=== PATIENT | female | born 1950 | race Caucasian/White ===

== ENCOUNTER 2018-04-28 10:15 | Emergency (ER) | payer MEDICARE, MEDICAID, SELFPAY ==
[2018-04-28 10:19] VITALS: BP 152/64; PULSE 91; RESP 12; TEMP 36.7; O2SAT 98
--- NOTE | 2018-04-28 10:30 | DI.RAD_ITS ---
SYMPTOMS/DIAGNOSIS: S/P FALL, ? ACUTE FRACTURE LEFT WRIST AND LEFT HAND: There is an impacted nondisplaced fracture involving the distal radial metaphysis. No other acute fracture or dislocation is seen. On the lateral view of the hand, there is a question of periosteal reaction along the palmar aspect of the left 5th metacarpal. There is soft tissue swelling of the hand and wrist noted. No radiopaque foreign bodies are seen in the soft tissues. IMPRESSION: 1. Nondisplaced impacted fracture involving the distal radial metaphysis. 2. Questionable area of periostitis involving the palmar surface of the 5th metacarpal. This is best appreciated on the lateral view. This may represent a healing osseous injury or other bony abnormality. Please correlate with the patient's physical exam. Further evaluation may be warranted.
--- NOTE | 2018-04-28 11:13 | ED.GENADUL_ITS ---
Discharge Plan Disposition Patient Disposition: HOME Condition: Stable Discharge Details Chief Complaint: Orthopedic Clinical Impression: Colles' fracture of left radius Primary Care Provider: Shahbaz Rooney ED Provider: Adelia Vivas Home Meds and New Rx's Prescriptions: No Action No Known Home Meds RF: 0 Discharge Instructions Instructions: Wrist Fracture in Adults (ED) Additional Instructions: Rest, ice, elevate left wrist as much as possible. Call orthopedics on Monday morning to schedule follow-up appointment for reevaluation. Return to the emergency department any worsening or new concerning symptoms. Referrals: Jesu Sherman MD [ [facility] STAFF PHYSICIAN] - Discharge Data Discharge Date/Time-TO BE ENTERED AT DEPARTURE: 04/28/18 12:18 Discharge Physician: Adelia Vivas Medical Decision Making 67-year-old female presents with left wrist and hand pain after fall on outstretched hand 3 days ago. She has edema and ecchymosis noted to proximal fingers, hand and left wrist and medial forearm. No evidence of deformity. Neurovascular intact. Suspect fracture based on exam. Patient offered Motrin or Tylenol but declines. Will send for left wrist and hand x-rays. No tenderness palpation or deformity noted to left forearm so I do not see indication for x-ray forearm. 1115 --x-rays reviewed with orthopedics, appears consistent with Colles' fracture. Will place a volar splint and follow-up with orthopedics as an outpatient. Final report on x-ray notes an impacted nondisplaced fracture distal radius. There was a mention of possible periostitis fifth metacarpal midshaft, patient has no tenderness to palpation in this area, so do not suspect an acute or subacute bony injury. Volar splint placed and patient given sling. She is instructed on the importance of rest, ice, elevate. Instructed to continue to alternate Tylenol Motrin and follow-up with orthopedics as an outpatient. She is instructed return at any time if worse. Medical Records Medical records reviewed: Yes I reviewed the patient's medical records. Imaging Data Radiologic Study: Radiologist's impression: XR Left Hand Complete, 3 or more Views EXAM DATE/TIME: 04/28/2018 10:33 AM FINDINGS: Bones/joints: Impacted, nondisplaced fracture of the distal radius metaphysis. Mild degenerative changes within the joints of the wrist and hand. Mild osteopenia. Possible mild periostitis at the palmar surface of the fifth metacarpal mid shaft seen on lateral examination. This may be the sequelae of subacute bony injury or other underlying bony abnormality. No pustular or osteoblastic lesion is identified. Correlate clinically with symptoms referrable to this location. Soft tissues: Swelling of the wrist and hand soft tissues. IMPRESSION: 1. Impacted nondisplaced fracture of the distal radius metaphysis. 2. Possible small area of periostitis along the palmar surface of the fifth metacarpal mid shaft. XR Left Wrist Complete, 3 or more Views EXAM DATE/TIME: 04/28/2018 11:06 AM FINDINGS: Bones/joints: Impacted nondisplaced fracture of the distal radius metaphysis. No dislocation. Soft tissues: Diffuse swelling of the wrist and hand soft tissues. IMPRESSION: Impacted nondisplaced fracture of the distal radius metaphysis. HPI General Mode of arrival: ambulatory . Date/Time Provider Initiated Documentation: 04/28/18 10:18 . Limitations to Documentation: no limitations . Information obtained by: patient . HPI Narrative: Patient is a 67-year-old who presents with left wrist and hand pain after fall on outstretched hand 3 days ago. Patient states she was walking and slipped on ice. Patient states she was unable to come to the emergency department or her doctor due to a family member in the hospital. She has been taking Advil for pain, last dose last night. She denies any other injuries. Related Data Home Medications Medication Instructions Recorded Confirmed Unknown [No Known Home Meds] 04/28/18 04/28/18 Allergies Allergy/AdvReac Type Severity Reaction Status Date / Time Penicillins AdvReac Unverified 04/28/18 10:22 General Stated Complaint: Orthopedic KATHARINE: 4 Review of Systems Review of Systems All systems reviewed & are unremarkable except as noted in HPI and below Constitutional Reports as per HPI, Denies chills and Denies fever(s) Eyes Denies blurry vision ENT Denies dizziness, Denies sore throat and Denies throat swelling Cardiovascular Denies chest pain and Denies dyspnea Respiratory Denies cough and Denies dyspnea Gastrointestinal Denies abdominal pain, Denies diarrhea and Denies vomiting Genitourinary Denies hematuria and Denies dysuria Musculoskeletal Denies back pain and Denies numbness Integumentary/Breasts Denies lesions and Denies rash Neurologic Denies dizziness, Denies focal weakness and Denies numbness Allergic/Immunologic Denies throat swelling [facility] Medical History No significant past medical history (Acute) Surgical History History of hysterectomy (Chronic) Social History Smoking and Tabacco status: Never alcohol intake: current alcohol intake frequency: 0-2 drinks per day substance use type: does not use Exam Const General: cooperative, healthy appearing and no acute distress HENMT Head: normal to inspection Mouth: oral mucosae normal Eyes General: appearance normal, both eyes and all related structures Neck Neck: normal visual inspection Resp Effort & Inspection: normal respiratory effort and able to speak in complete sentences Cardio Rate: regular rate Skin General skin exam: no rashes or lesions noted Neuro General: alert, awake and oriented x3 Motor: muscle tone normal throughout Extrem Other: Moderate edema and ecchymosis noted proximal Left first through fifth fingers, hand, wrist and medial forearm. No left snuffbox tenderness. Cap refill less than 2 seconds. No tenderness to palpation of forearm. Compartmen ts soft. Left elbow and shoulder normal to inspection and palpation. Left radial and ulnar pulses intact. Psych Appearance: grossly normal Affect: normal affect Course Vital Signs Temperature 98.1 F 04/28/18 10:19 Pulse 91 H 04/28/18 10:19 Respiratory Rate 12 04/28/18 10:19 Blood Pressure 152/64 H 04/28/18 10:19 Pulse Oximetry 98 04/28/18 10:19 Temperature 98.1 F 04/28/18 10:19 Temperature Source Temporal Artery Scan 04/28/18 10:19 Pulse 91 H 04/28/18 10:19 Respiratory Rate 12 04/28/18 10:19 Respiratory Effort Non-Labored 04/28/18 10:21 Blood Pressure 152/64 H 04/28/18 10:19 Blood Pressure Position Sitting 04/28/18 10:19 Pulse Oximetry 98 04/28/18 10:19 Pain Level 4 04/28/18 10:22 Procedures Orthopedic Splinting/Casting Injury #1: Side: left Upper Extremity Injury Location: wrist Upper Extremity Immobilizer: volar spint
--- NOTE | 2018-04-28 11:22 | DI.VRAD_ITS ---
EXAM: XR Left Wrist Complete, 3 or more Views EXAM DATE/TIME: 04/28/2018 11:06 AM CLINICAL HISTORY: 67 years old, female; Signs and symptoms; Other: S/P fall, R/O acute fracture TECHNIQUE: XR Left wrist 3 or more views. COMPARISON: CR XR hand LT complete 04/28/2018 10:57 AM FINDINGS: Bones/joints: Impacted nondisplaced fracture of the distal radius metaphysis. No dislocation. Soft tissues: Diffuse swelling of the wrist and hand soft tissues. IMPRESSION: Impacted nondisplaced fracture of the distal radius metaphysis. Dictated and Authenticated by: Gm Stewart MD. Ordering:GISSELLE Delvalle MD
--- NOTE | 2018-04-28 11:22 | DI.VRAD_ITS ---
EXAM: XR Left Hand Complete, 3 or more Views EXAM DATE/TIME: 04/28/2018 10:33 AM CLINICAL HISTORY: 67 years old, female; Signs and symptoms; Other: S/P fall, r, o acute fracture TECHNIQUE: XR Left hand 3 or more views. COMPARISON: No relevant prior studies available. FINDINGS: Bones/joints: Impacted, nondisplaced fracture of the distal radius metaphysis. Mild degenerative changes within the joints of the wrist and hand. Mild osteopenia. Possible mild periostitis at the palmar surface of the fifth metacarpal mid shaft seen on lateral examination. This may be the sequelae of subacute bony injury or other underlying bony abnormality. No pustular or osteoblastic lesion is identified. Correlate clinically with symptoms referrable to this location. Soft tissues: Swelling of the wrist and hand soft tissues. IMPRESSION: 1. Impacted nondisplaced fracture of the distal radius metaphysis. 2. Possible small area of periostitis along the palmar surface of the fifth metacarpal mid shaft. Dictated and Authenticated by: Gm Stewart MD. Ordering:GISSELLE Delvalle MD
== END 2018-04-28 12:18 | disposition home or self-care (01) ==
LOC: ER 12:51
PROVIDERS: Emergency Provider Physician Assistant; PCP Internal Medicine
DX: S52.532A Colles' fracture of left radius, initial encounter for closed fracture (principal); S60.222A Contusion of left hand, initial encounter; W01.0XXA Fall on same level from slipping, tripping and stumbling without subsequent striking against object, initial encounter
CPT/HCPCS: 99284; 73110; 73130; 99282; L3650

== ENCOUNTER 2018-05-09 13:46 | Outpatient (CLI) | payer MEDICARE, MEDICAID, SELFPAY ==
--- NOTE | 2018-05-09 13:39 | DI.RAD_ITS ---
SYMPTOMS/DIAGNOSIS: F/U FRACTURE LEFT WRIST: Three views. Comparison is 04/28/18. There has been no change in alignment of the fracture involving the distal metaphysis of the left radius. No new fractures or dislocations are seen. The patient's wrist is in a cast.
== END 2018-05-09 14:06 ==
PROVIDERS: PCP Internal Medicine; Referring Provider Internal Medicine; Visit Provider Student in an Organized Health Care Education/Training Program
DX: S52.502A Unspecified fracture of the lower end of left radius, initial encounter for closed fracture (principal); W00.0XXA Fall on same level due to ice and snow, initial encounter
CPT/HCPCS: 99202; 99214; 73110; L3908

== ENCOUNTER → 2018-05-30 10:01 | Outpatient (BNVA) | payer MEDICARE, MEDICAID, SELFPAY | PROVIDERS: PCP Internal Medicine; Referring Provider Internal Medicine; Visit Provider Student in an Organized Health Care Education/Training Program | DX: S52.502D Unspecified fracture of the lower end of left radius, subsequent encounter for closed fracture with routine healing (principal); X58.XXXD Exposure to other specified factors, subsequent encounter | CPT/HCPCS: 99212 ==

== ENCOUNTER 2020-10-22 04:14 | Outpatient (CLI) | payer MEDICARE, MEDICAID, SELFPAY ==
[2020-10-22 07:44] LABS: HCT 38.7 % (36.0-46.0); HGB 12.9 g/dL (11.2-15.7); MCH 31.5 pg (27.0-33.0); MCHC 33.3 % (32.0-36.0); MCV 94.4 fL (80-95); MPV 9.8 fL (8.0-11.0); Platelet Count 281 10^3/uL (130-400); RDW 13.2 % (11.7-14.6); RDW-SD 45.4 fL; WBC 5.87 10^3/uL (4.4-10.8)
[2020-10-22 09:13] LABS: ALT 19 U/L (14-59); AST 18 U/L (15-37); Alkaline Phosphatase 90 U/L (46-116); Anion Gap 13.1 mmol/L (3-11); BUN 18 mg/dL (7-18); Bilirubin, Total 0.8 mg/dL (0.2-1.0); CO2 22.9 mmol/L (21.0-32.0); CREATININE 0.9 mg/dL (0.55-1.02); Calcium 9.4 mg/dL (8.5-10.1); Chloride 107 mmol/L (98-107); Glucose 95 mg/dL (74-106); Sodium 143 mmol/L (136-145); Total Protein 7.5 g/dL (6.4-8.2)
== END 2020-10-22 04:15 | disposition home or self-care (01) ==
LOC: LBO 04:15
PROVIDERS: PCP Student in an Organized Health Care Education/Training Program; Visit Provider Student in an Organized Health Care Education/Training Program
DX: Z87.81 Personal history of (healed) traumatic fracture; E86.0 Dehydration
CPT/HCPCS: 36415; 80053; 85027

== ENCOUNTER 2020-12-03 00:40 | Outpatient (CLI) | payer MEDICARE, MEDICAID, SELFPAY ==
--- NOTE | 2020-12-03 06:30 | DI.MAMMO_ITS ---
Exam(s) MAMMO SCREENING EXAM: MAMMO SCREENING CLINICAL HISTORY: screening,Z12.39. TECHNIQUE: Bilateral full field digital CC and MLO mammographic images were obtained with 3D tomosyn thesis and utilizing computer aided detection (CAD). COMPARISON: Prior 2015 mammogram. There are no others available for comparison. FINDINGS: The posterior lateral aspect of the right breast there is an asymmetric partially calcified density w hich more evident than previous but only partially included in the field of view here. Additional ma mmographic views recommended. In the opposite-left breast there are increasing calcifications noted but these have benign appearanc e. There are no malignant-appearing microcalcification groups in either breast. Benign cutaneous-ty pe microcalcifications in the medial aspect of the right breast are noted. There is no significant architectural distortion nor skin thickening-retraction. IMPRESSION: 1. No radiographic evidence of malignancy in left breast. 2. Asymmetric density posteriorly in the right breast, partially calcified, more evident than on the prior 2015 study. Exaggerated CC spot compression views of this area recommended. Possibly also ult rasound. BI-RADS Category 0 - Assessment Incomplete: Need additional imaging evaluation Breast Density - Category B - Scattered areas of fibroglandular density Breast density Category C or D implies that the patient has dense breast tissue. Dense breast tissue can make it harder to find cancer on a mammogram. Dense breast tissue is also associated with an incr eased risk of breast cancer. This information about the result of the mammogram report was provided to the patient to raise their awareness. Use this report when you speak with the patient about their risks for breast cancer, which includes their family history. At that time, you may recommend additional screening tests (Ultrasoun d or MRI) as these tests may add significant information. A negative radiographic report should not delay biopsy if a dominant or clinically suspicious mass is present. Up to ten percent of cancers are not identified on mammography. A negative report may reinforce clinical impression. Adenosis and dense breasts may obscure an underlying neoplasm. False positive reports average 6 to 10%. Patient will receive a letter notifying them of these results.
== END 2020-12-03 01:00 ==
PROVIDERS: PCP Student in an Organized Health Care Education/Training Program; Visit Provider Student in an Organized Health Care Education/Training Program
DX: Z12.31 Encounter for screening mammogram for malignant neoplasm of breast (principal); R92.8 Other abnormal and inconclusive findings on diagnostic imaging of breast
CPT/HCPCS: 77063; 77067

== ENCOUNTER 2020-12-17 02:16 | Outpatient (CLI) | payer MEDICARE, MEDICAID, SELFPAY ==
--- NOTE | 2020-12-17 | DI.US_ITS ---
Exam(s) MG MAMMO SCREEN CALL BACK UNI US BREAST RT LIMITED EXAM: MG MAMMO SCREEN CALL BACK UNI and U/S breast RT limited CLINICAL HISTORY: F/U MAMMO, ASYMMETRIC CALCIFIED DENSITY,. TECHNIQUE: Craniocaudal and mediolateral oblique Full Field Digital Mammography views of the right b reast with Computer Aided Diagnosis followed by Tomosynthesis and right breast ultrasound. COMPARISON: Comparison is made with prior examinations. FINDINGS: Mammography/Tomosynthesis: Masses/Architectural Distortion: None seen. The area in the outer right breast shows no persistent ma ss. The calcifications are seen on prior examinations and are vascular. Microcalcifictions: No suspicious pleomorphic-type are seen. Skin Thickening/Nipple Retraction: None. Right breast US: Echotexture: Normal appearance of the glandular tissue. Shadowing: No suspicious foci. Cyst: None. Solid lesions: None seen. Ductal dilation: None. IMPRESSION: 1. No evidence of malignancy is noted. 2. Unless there is more urgent need, follow-up screening mammography is recommended, as per [employer] [employer] guidelines. 3. The findings were discussed with the patient on the date of the examination. BI-RADS Category 1 - Negative Breast Density - Category B - Scattered areas of fibroglandular density Breast density Category C or D implies that the patient has dense breast tissue. Dense breast tissue can make it harder to find cancer on a mammogram. Dense breast tissue is also associated with an incr eased risk of breast cancer. This information about the result of the mammogram report was provided to the patient to raise their awareness. Use this report when you speak with the patient about their risks for breast cancer, which includes their family history. At that time, you may recommend additional screening tests (Ultrasoun d or MRI) as these tests may add significant information. A negative radiographic report should not delay biopsy if a dominant or clinically suspicious mass is present. Up to ten percent of cancers are not identified on mammography. A negative report may reinforce clinical impression. Adenosis and dense breasts may obscure an underlying neoplasm. False positive reports average 6 to 10%. Patient will receive a letter notifying them of these results.
== END 2020-12-17 02:36 ==
PROVIDERS: PCP Student in an Organized Health Care Education/Training Program; Visit Provider Student in an Organized Health Care Education/Training Program
DX: R92.8 Other abnormal and inconclusive findings on diagnostic imaging of breast (principal)
CPT/HCPCS: 76642; 77063; 77067

== ENCOUNTER 2022-03-28 03:08 | Outpatient (CLI) | payer MEDICARE, MEDICAID, SELFPAY ==
[2022-03-28 12:57] LABS: Calculated LDL 131 mg/dL (<100); Cholesterol 265 mg/dL (<200); HDL Cholesterol 78 mg/dL (40-60); TSH (W/Ref FT4) 5.39 uIU/mL (0.36-3.74); Triglyceride 280 mg/dL (<150)
[2022-03-28 13:58] LABS: FREE T4 0.86 ng/dL (0.76-1.46)
== END 2022-03-28 03:09 | disposition home or self-care (01) ==
LOC: LOS 03:08
PROVIDERS: PCP Student in an Organized Health Care Education/Training Program; Visit Provider Student in an Organized Health Care Education/Training Program
DX: R06.00 Dyspnea, unspecified (principal); Z13.220 Encounter for screening for lipoid disorders; Z87.19 Personal history of other diseases of the digestive system
CPT/HCPCS: 36415; 80061; 84439; 84443

== ENCOUNTER 2022-05-16 08:12 | Day surgery (SDC) | payer MEDICARE, MEDICAID, SELFPAY ==
[2022-05-16 08:20] VITALS: BP 133/73; PULSE 66; RESP 16; TEMP 36.6; O2SAT 98
[2022-05-16] MEDS: Tropicam./Phenyleph. (1/2.5%) 5 ML BTL OS ×3 (08:43→08:59)
--- NOTE | 2022-05-16 09:50 | W.ANESPRE ---
General Info Date of Service Date Performed: 05/16/22 Height: 5 ft 4 in Weight: 48.7 kg Body Mass Index (BMI): 18.4 Surgical Procedure: Operation Date: 05/16/22 09:55 Proposed Procedure Side Surgeon p Cataract Extraction with IOL Implant Left Niranjan Madden MD Meds Allergies and Home Medications Allergies Allergy/AdvReac Type Severity Reaction Status Date / Time Penicillins AdvReac Mild rash Verified 05/16/22 08:32 Home Medication Medication Instructions Recorded aspirin 81 mg tablet,delayed 81 mg PO .QOD 07/30/21 release cholecalciferol (vitamin D3) 25 25 mcg PO DAILY 07/30/21 mcg (1,000 unit) capsule Current Visit Medications: Current Medications Generic Name Dose Route Start Last Admin Trade Name Freq PRN Reason Stop Dose Admin Acetaminophen 1,000 mg 05/16/22 06:00 Acetaminophen 500 Mg Tab PO Q4H PRN PRN Miscellaneous Medication 0 ml 05/16/22 06:00 05/16/22 08:59 Tropicam./Phenyleph. (1/2.5%) 5 Ml Btl OS 1 drp DIRECTED MIYA Administration Miscellaneous Medication 0 ml 05/16/22 06:00 Prednisolone 1%, Moxifloxacin 0.5%, Nepafenac 0.1% 5ml Btl OS DIRECTED MIYA Tetracaine HCl 0 ml 05/16/22 06:00 Tetracaine 0.5% 4 Ml Btl OS DIRECTED MIYA PFSH Active Problems Active Problems: Problem Status Onset Code Posterior subcapsular age-related cataract of left eye H25.042 Cortical cataract of left eye H26.9 Nuclear age-related cataract, left eye H25.12 Cataracts, bilateral H26.9 PND (post-nasal drip) R09.82 Screening for cholesterol level Z13.220 History of IBS Z87.19 Dehydration E86.0 Tinnitus H93.19 Lesion of lip K13.0 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 Closed fracture of left distal radius S52.502A Medical History Medical History No significant past medical history Surgical History Surgical History History of bunionectomy History of hysterectomy left part of right ovary for severe endometriosis AGE 18 Tobacco Smoking/Tobacco Use Status: Never Passive smoking exposure: No Alcohol Alcohol Intake: current Alcohol intake frequency: 0-2 drinks per day Alcohol type: wine Substance Use Substance use: Never Substance use type: does not use Vital Signs and Lab Results Vital Signs Most Recent Vital Signs in EMR: Most Recent Vital Signs Temp Pulse Resp BP Pulse Ox 36.6 C 66 16 133/73 98 05/16/22 08:20 05/16/22 08:20 05/16/22 08:20 05/16/22 08:20 05/16/22 08:20 Lab Results Blood Type / Crossmatch: No Data to Display Complete Blood Count: No Data to Display Complete Metabolic Panel: No Data to Display Liver Function Panel: No Data to Display Coagulation Panel: No Data to Display Cardiac Panel: No Data to Display Arterial Blood Gas: No Data to Display Venous Blood Gas: No Data to Display Pancreas Panel: No Data to Display Thyroid Panel: No Data to Display Infectious Disease: No Data to Display Blood Cultures: No Data to Display Toxicology Panel: No Data to Display Anesthesia Assessment and Plan Anesthesia History Personal History: No History of Anesthesia Complications Family History: No Family History of Anesthesia Complications Exercise Tolerance Exercise Tolerance: Metabolic Equivalents>4 Pertinent Negatives Pertinent Negatives: No Symptoms of GERD, No Major Cardiovascular Symptoms or Complaints, No Major Pulmonary Symptoms or Complaints and No History of CVA/TIA Cardiac & Pulmonary Exam Cardiac Exam: Normal S1/S2 Heart Sounds Pulmonary Exam: Clear Bilateral Breath Sounds Implantable Cardiac Device Does patient have a Pacemaker or an ICD?: No Airway Exam Known Difficult Airway: No Mallampati Class: 2 Mouth Opening: Normal (> 3cm) Thyromental Distance: Greater than 3 cm Neck Range of Motion: Full ROM Neck Circumference: Normal Teeth Condition: Normal Dentition ASA Classification ASA Score: ASA 2 Emergency Case?: No NPO Status NPO Status: NPO Clears >2 hours, Solids >8 hours Anesthesia Plan Resuscitation Status: Full Code Anesthesia Technique: MAC Anesthesia Airway Planned: Natural Airway Monitors Used: Standard Monitors
[2022-05-16 10:27] VITALS: BMI 18.4
[2022-05-16] MEDS: Tetracaine 0.5% 4 ML BTL OS (10:31)
[2022-05-16] MEDS: Duovisc Viscoelastic System EACH 1 EACH (10:32)
[2022-05-16] MEDS: Balanced Salt Soln.-PLUS 500 ML BAG (10:32)
[2022-05-16] MEDS: Lidocaine 1% Pres-Free 5 ML VIAL (10:33)
[2022-05-16] MEDS: Phenylephrine/Lidocaine (15/10) MG/ML 1 ML VIAL (10:34)
[2022-05-16] MEDS: Povidone-Iodine Ophth 30 ML BTL (10:34)
[2022-05-16 10:48] VITALS: BP 150/76; PULSE 80; RESP 16; TEMP 36.5; O2SAT 100
--- NOTE | 2022-05-16 10:49 | ROE_ITS ---
Date of service: 05/16/22 Time of Service: 10:49 Operative Note Operative Note DATE OF PROCEDURE: 05/16/22 PRE-OP DIAGNOSIS: Nuclear/cortical/posterior subcapsular cataract, left eye POST-OP DIAGNOSIS: same PROCEDURE: Cataract extraction using phacoemulsification with intraocular lens implant, left eye SURGEON: Niranjan Madden ANESTHESIA TYPE: Local By Surgeon and MAC Refer to Anesthesia Record PATHOLOGY: none sent COMPLICATIONS: None Patient was transported to: same day Patient's condition: stable Implants: Wander [employer] Wander Tecnis Eyhance [id number] Indications: Progressive decreased vision due to cataract, left eye Procedure Description: CATARACT SURGERY OPERATIVE REPORT PREOPERATIVE DIAGNOSIS: 1. Nuclear/cortical/posterior subcapsular cataract, left eye POSTOPERATIVE DIAGNOSIS: Same OPERATION: 1. Cataract extraction using phacoemulsification with posterior chamber intraocular lens implant, left eye. IOL: IOL Clinical Documentation Improvement Specialist/Model: Wander [employer] Wander Tecnis Eyhance [id number] IOL Power: + 13.5 diopters IOL Serial Number: [id number] Optic Diameter: 6.0 mm Haptic/Overall Diameter: 13.0 mm PHACO INFO: Danilo Empow Studiosurion Vision System with OZil and Active Fluidics Cumulative Dispersed Energy (CDE): 7.57 seconds SURGEON: Niranjan Madden MD, VARUN ANESTHESIA: Monitored A [facility] (MAC), with local sub-tenon's anesthetic infiltration COMPLICATIONS: None SPECIMENS: None INDICATIONS FOR PROCEDURE: The patient is a 71-year-old lady with history of diminished visual acuity in her left eye secondary to the development of nuclear/cortical/posterior subcapsular cataract. She is significantly symptomatic that she desires cataract surgery and attempt to improve and maximize her vision. PROCEDURE: The correct surgical eye was identified and marked as the left eye and the pupil was dilated in the preoperative area using mydriatics and cycloplegics. The dilated pupil size was 8.0 mm. The patient elected to proceed without oral sedation. The patient was brought to the operating room where cardiopulmonary monitoring was instituted and surgical time-out was performed, confirming the correct operative eye and IOL power. Topical anesthesia was administered and ophthalmic povidone-iodine 5% was instilled into the conjunctival fornices. Lidocaine gel was applied to the cornea and the eliana-ocular area was prepped with Betadine 10% solution and draped in the usual sterile fashion for intraocular surgery, including an aperture drape. A Tegaderm transparent film dressing was cut in half and used to cover the lashes and lid margins. Care was taken to sequester the lashes and lid margins under the Tegaderm dressing. A lid speculum was placed between the lids of the operative eye and the Danilo LuxOR Revalia operating microscope was maneuvered into position. Carlito scissors were then used to make a conjunctival buttonhole approximately 6mm posterior to the limbus in the inferonasal quadrant. Blunt dissection was carried out to expose bare sclera, and a blunt-tipped sub-tenon?s anesthesia cannula was introduced and passed posteriorly along the globe where non- preserved plain lidocaine was injected into posterior sub-Tenon?s space. A sideport knife was used to make a paracentesis port superiorly/superiortemporally. Intraocular phenylephrine/lidocaine was injected int the anterior chamber.. The anterior chamber was filled with viscoelastic. A keratome knife was used to construct a 2-plane near-clear corneal tunnel extending 2.0mm into clear cornea temporally. A flap was raised on the anterior capsule and capsulorhexis forceps were used to complete a continuous curvilinear capsulorhexis of 5.0 mm. Balanced salt solution was then used to perform cortical cleaving hydrodissection and nuclear hydrodelineation until the lens could be freely rotated within the capsular bag. The lens nucleus was then disassembled and removed within the capsular bag and iris plane using phacoemulsification. Residual cortical material was removed using the 45-degree angled silicone I/A tip with 0.3mm port. The posterior capsule was carefully polished to remove as much residual lens epithelial cells as safely possible. The capsular bag was then inflated and the anterior chamber deepened with viscoelastic. The lens implant described above was inserted into the capsular bag using the Wander and Wander Simplicity pre-loaded injector. . A Kuglen hook was used to dial the IOL into position. Residual viscoelastic was then removed first from posterior to the IOL, then from the anterior chamber using the I/A handpiece. The lens implant was noted to center nicely within the capsular bag. The incisions were stromally hydrated, and the anterior chamber was reformed using BSS. Then 0.5cc of moxifloxacin 1.0mg/ml were injected into the capsular bag and anterior chamber. The incisions were checked with a Weck spear and found to be secure. Several drops of ophthalmic povidone-iodine 5% were then applied to the eye followed by two drops of Imprimis combination prednisolone/moxifloxacin/nepafenac solution. The drapes were removed and a clear plastic protective eye shield was placed over the eye. The patient was then returned to [facility] Day Surgery in stable condition.
--- NOTE | 2022-05-16 10:49 | W.PM.DSUDISC ---
Date of service: 05/16/22 Time of Service: 10:49 Discharge Plan Disposition Patient Disposition: Home Discharge Details Attending Provider: Niranjan Madden Primary Care Provider: Ariane Burdick Home Meds and New Rx's Prescriptions: No Action aspirin 81 mg tablet,delayed release (DR/EC) 81 mg PO .QOD cholecalciferol (vitamin D3) 25 mcg (1,000 unit) capsule 25 mcg PO DAILY Discharge Instructions Stand Alone Forms: Post-op Topical Cataract, Celia Mitchell ([facility]) Discharge Orders Discharge Orders: Discharge Order (Routine); Ordered 05/16/22 Ordered By: Niranjan Madden DS: Diagnosis Discharge Diagnosis (1) Posterior subcapsular age-related cataract of left eye: Status: Resolved (2) Cortical cataract of left eye: Status: Resolved (3) Nuclear age-related cataract, left eye: Status: Resolved
--- NOTE | 2022-05-16 11:26 | W.ANESPOSTOP ---
Postoperative Evaluation Date, Time and Location Date Performed: 05/16/22 Time Performed: 10:55 Patient Location: Day Surgery Unit Vital Signs Most Recent Imported Vital Signs: Most Recent Vital Signs Temp Pulse Resp BP Pulse Ox 36.5 C 80 16 150/76 H 100 05/16/22 10:48 05/16/22 10:48 05/16/22 10:48 05/16/22 10:48 05/16/22 10:48 Pain Score Most Recent Pain Score: Most Recent Pain Score Pain Level 0 05/16/22 10:48 Assessment Mental Status: Awake (Alert & Oriented to Patient Baseline) Airway and Respiratory Function: Patent airway with normal (patient baseline) respiratory exam Cardiovascular Function: Hemodynamically Stable Hydration Status: Adequately Hydrated Nausea & Vomiting: No Nausea or Vomiting Pain: Pt. Denies Any Pain Peripheral Nerve Block: Patient did not receive a nerve block
== END 2022-05-16 11:11 | disposition home or self-care (01) ==
LOC: SUR 08:12
PROVIDERS: PCP Student in an Organized Health Care Education/Training Program; Visit Provider Ophthalmology
PROC: (CPT 66984; principal; 2022-05-16 09:45)
DX: H25.042 Posterior subcapsular polar age-related cataract, left eye (principal)
CPT/HCPCS: 66984; V2632

== ENCOUNTER 2022-05-30 07:49 | Day surgery (SDC) | payer MEDICARE, MEDICAID, SELFPAY ==
[2022-05-30 08:00] VITALS: BP 144/62; PULSE 70; RESP 16; TEMP 36.5; O2SAT 98
--- NOTE | 2022-05-30 08:19 | W.ANESPRE ---
General Info Date of Service Date Performed: 05/30/22 Height: 5 ft 4 in Weight: 48.3 kg Body Mass Index (BMI): 18.2 Surgical Procedure: Operation Date: 05/30/22 10:40 Proposed Procedure Side Surgeon p Cataract Extraction with IOL Implant Right Niranjan Madden MD Meds Allergies and Home Medications Allergies Allergy/AdvReac Type Severity Reaction Status Date / Time Penicillins AdvReac Mild rash Verified 05/30/22 08:06 Home Medication Medication Instructions Recorded aspirin 81 mg tablet,delayed 81 mg PO .QOD 07/30/21 release cholecalciferol (vitamin D3) 25 25 mcg PO DAILY 07/30/21 mcg (1,000 unit) capsule Current Visit Medications: Current Medications Generic Name Dose Route Start Last Admin Trade Name Freq PRN Reason Stop Dose Admin Acetaminophen 1,000 mg 05/30/22 06:00 Acetaminophen 500 Mg Tab PO Q4H PRN PRN Miscellaneous Medication 0 ml 05/30/22 06:00 05/30/22 08:18 Tropicam./Phenyleph. 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 Lesion of lip K13.0 Tinnitus H93.19 Dehydration E86.0 History of IBS Z87.19 Screening for cholesterol level Z13.220 PND (post-nasal drip) R09.82 Cataracts, bilateral H26.9 Nuclear age-related cataract, left eye H25.12 Cortical cataract of left eye H26.9 Posterior subcapsular age-related cataract of left eye H25.042 Medical History Medical History No significant past medical history Surgical History Surgical History History of bunionectomy History of cataract surgery History of hysterectomy left part of right ovary for severe endometriosis AGE 18 Tobacco Smoking/Tobacco Use Status: Never Passive smoking exposure: No Alcohol Alcohol Intake: current Alcohol intake frequency: 0-2 drinks per day Alcohol type: wine Substance Use Substance use: Never Substance use type: does not use Vital Signs and Lab Results Vital Signs Most Recent Vital Signs in EMR: Most Recent Vital Signs Temp Pulse Resp BP Pulse Ox 36.5 C 70 16 144/62 H 98 05/30/22 08:00 05/30/22 08:00 05/30/22 08:00 05/30/22 08:00 05/30/22 08:00 Lab Results Blood Type / Crossmatch: No Data to Display Complete Blood Count: No Data to Display Complete Metabolic Panel: No Data to Display Liver Function Panel: No Data to Display Coagulation Panel: No Data to Display Cardiac Panel: No Data to Display Arterial Blood Gas: No Data to Display Venous Blood Gas: No Data to Display Pancreas Panel: No Data to Display Thyroid Panel: No Data to Display Infectious Disease: No Data to Display Blood Cultures: No Data to Display Toxicology Panel: No Data to Display Anesthesia Assessment and Plan Anesthesia History Personal History: No History of Anesthesia Complications Family History: No Family History of Anesthesia Complications Exercise Tolerance Exercise Tolerance: Metabolic Equivalents>4 Pertinent Negatives Pertinent Negatives: No Symptoms of GERD, No Major Cardiovascular Symptoms or Complaints and No Major Pulmonary Symptoms or Complaints Cardiac & Pulmonary Exam Cardiac Exam: Normal S1/S2 Heart Sounds Pulmonary Exam: Clear Bilateral Breath Sounds Implantable Cardiac Device Does patient have a Pacemaker or an ICD?: No Airway Exam Known Difficult Airway: No Mallampati Class: 2 Mouth Opening: Normal (> 3cm) Thyromental Distance: Greater than 3 cm Neck Range of Motion: Full ROM Neck Circumference: Normal Teeth Condition: Normal Dentition ASA Classification ASA Score: ASA 2 Emergency Case?: No NPO Status NPO Status: NPO Clears >2 hours, Solids >8 hours Anesthesia Plan Resuscitation Status: Full Code Anesthesia Technique: MAC Anesthesia Airway Planned: Natural Airway Monitors Used: Standard Monitors
[2022-05-30 08:52] VITALS: BMI 18.2
[2022-05-30] MEDS: Tetracaine 0.5% 4 ML BTL OD (09:45)
[2022-05-30] MEDS: Balanced Salt Soln.-PLUS 500 ML BAG (09:49)
[2022-05-30] MEDS: Lidocaine 1% Pres-Free 5 ML VIAL (09:49)
[2022-05-30] MEDS: Phenylephrine/Lidocaine (15/10) MG/ML 1 ML VIAL (09:50)
[2022-05-30] MEDS: Duovisc Viscoelastic System EACH 1 EACH (09:51)
[2022-05-30] MEDS: Povidone-Iodine Ophth 30 ML BTL (09:51)
[2022-05-30 10:00] VITALS: BP 151/66; PULSE 68; RESP 16; TEMP 36.1; O2SAT 100
--- NOTE | 2022-05-30 10:00 | ROE_ITS ---
Date of service: 05/30/22 Time of Service: 10:00 Operative Note Operative Note DATE OF PROCEDURE: 05/30/22 PRE-OP DIAGNOSIS: Nuclear/cortical cataract, right eye POST-OP DIAGNOSIS: same PROCEDURE: Cataract extraction using phacoemulsification with intraocular lens implant, right eye SURGEON: Niranjan Madden ANESTHESIA TYPE: Local By Surgeon and MAC Refer to Anesthesia Record ESTIMATED BLOOD LOSS: 0 PATHOLOGY: none sent COMPLICATIONS: None Patient was transported to: same day Patient's condition: stable Implants: Wander [employer] Wander Tecnis Eyhance [id number] Indications: Progressive visual loss due to cataract, right eye Procedure Description: CATARACT SURGERY OPERATIVE REPORT PREOPERATIVE DIAGNOSIS: 1. Nuclear/cortical cataract, right eye POSTOPERATIVE DIAGNOSIS: Same OPERATION: 1. Cataract extraction using phacoemulsification with posterior chamber intraocular lens implant, right eye. IOL: IOL [employer] Handling Supervisor/Model: Wander [employer] Wander Tecnis Eyhance DIB00 IOL Power: + 14.5 diopters IOL Serial Number: [id number] Optic Diameter: 6.0mm Haptic/Overall Diameter: 13.0mm PHACO INFO: DaniloWineDemonurion Vision System with OZil and Active Fluidics Cumulative Dispersed Energy (CDE): 5.02 seconds SURGEON: Niranjan Madden MD, VARUN ANESTHESIA: Monitored Anesthesia Care (MAC), with local sub-tenon's anesthetic infiltration COMPLICATIONS: None SPECIMENS: None INDICATIONS FOR PROCEDURE: The patient is a 71-year-old lady with history of diminished visual acuity in her right eye secondary to the development of nuclear/cortical cataract. She is significantly symptomatic that she desires cataract surgery and attempt to improve and maximize her vision. The option of cataract surgery was offered to the patient and she wished to proceed. PROCEDURE: The correct surgical eye was identified and marked as the right eye and the pupil was dilated in the preoperative area using mydriatics and cycloplegics. The dilated pupil size was 7.0 mm. The patient elected to proceed without oral sedation. The patient was brought to the operating room where cardiopulmonary monitoring was instituted and surgical time-out was performed, confirming the correct operative eye and IOL power. Topical anesthesia was administered and ophthalmic povidone-iodine 5% was instilled into the conjunctival fornices. Lidocaine gel was applied to the cornea and the eliana-ocular area was prepped with Betadine 10% solution and draped in the usual sterile fashion for intraocular surgery, including an aperture drape. A Tegaderm transparent film dressing was cut in half and used to cover the lashes and lid margins. Care was taken to sequester the lashes and lid margins under the Tegaderm dressing. A lid speculum was placed between the lids of the operative eye and the Danilo LuxOR Revalia operating microscope was maneuvered into position. Carlito scissors were then used to make a conjunctival buttonhole approximately 6mm posterior to the limbus in the inferonasal quadrant. Blunt dissection was carried out to expose bare sclera, and a blunt-tipped sub-tenon?s anesthesia cannula was introduced and passed posteriorly along the globe where non- preserved plain lidocaine was injected into posterior sub-Tenon?s space. A sideport knife was used to make a paracentesis port inferotemporally. Intraocular phenylephrine/lidocaine was injected into the anterior chamber. The anterior chamber was filled with viscoelastic. A keratome knife was used to construct a 2-plane near-clear corneal tunnel extending 2.0mm into clear cornea superiortemporally. A flap was raised on the anterior capsule and capsulorhexis forceps were used to complete a continuous curvilinear capsulorhexis of 5.0 mm. Balanced salt solution was then used to perform cortical cleaving hydrodissection and nuclear hydrodelineation until the lens could be freely rotated within the capsular bag. The lens nucleus was then disassembled and removed within the capsular bag and iris plane using phacoemulsification. Residual cortical material was removed using the I/A handpiece. The posterior capsule was carefully polished to remove as much residual lens epithelial cells as safely possible. The capsular bag was then inflated and the anterior chamber deepened with viscoelastic. The lens implant described above was inserted into the capsular bag using the Wander and Thierno Simplicity pre-loaded injector. A Kuglen hook was used to dial the IOL into position. Residual viscoelastic was then removed first from posterior to the IOL, then from the anterior chamber using the I/A handpiece. The lens implant was noted to center nicely within the capsular bag. The incisions were stromally hydrated, and the anterior chamber was reformed using BSS. Then 0.5cc of moxifloxacin 1.0mg/ml were injected into the capsular bag and anterior chamber. The in cisions were checked with a Weck spear and found to be secure. Several drops of ophthalmic povidone-iodine 5% were then applied to the eye followed by two drops of Imprimis combination prednisolone/moxifloxacin/nepafenac solution. The drapes were removed and a clear plastic protective eye shield was placed over the eye. The patient was then returned to [facility] Day Surgery in stable condition.
--- NOTE | 2022-05-30 10:00 | W.PM.DSUDISC ---
Date of service: 05/30/22 Time of Service: 10:00 Discharge Plan Disposition Patient Disposition: Home Discharge Details Attending Provider: Niranjan Madden Primary Care Provider: Ariane Burdick Home Meds and New Rx's Prescriptions: No Action aspirin 81 mg tablet,delayed release (DR/EC) 81 mg PO .QOD cholecalciferol (vitamin D3) 25 mcg (1,000 unit) capsule 25 mcg PO DAILY Discharge Instructions Stand Alone Forms: Post-op Topical Cataract, Celia Mitchell ([facility]) Discharge Orders Discharge Orders: Discharge Order (Routine); Ordered 05/30/22 Ordered By: Niranjan Madden DS: Diagnosis Discharge Diagnosis (1) Cortical cataract of right eye: Status: Resolved (2) Nuclear age-related cataract, right eye: Status: Resolved
--- NOTE | 2022-05-30 10:04 | W.ANESPOSTOP ---
Postoperative Evaluation Date, Time and Location Date Performed: 05/30/22 Time Performed: 10:04 Patient Location: Day Surgery Unit Vital Signs Most Recent Imported Vital Signs: Most Recent Vital Signs Temp Pulse Resp BP Pulse Ox 36.5 C 70 16 144/62 H 98 05/30/22 08:00 05/30/22 08:00 05/30/22 08:00 05/30/22 08:00 05/30/22 08:00 Assessment Mental Status: Awake (Alert & Oriented to Patient Baseline) Airway and Respiratory Function: Patent airway with normal (patient baseline) respiratory exam Cardiovascular Function: Hemodynamically Stable Hydration Status: Adequately Hydrated Nausea & Vomiting: No Nausea or Vomiting Pain: Pt. Denies Any Pain Peripheral Nerve Block: Other (Local by Dr. Madden)
== END 2022-05-30 10:18 | disposition home or self-care (01) ==
LOC: SUR 07:49
PROVIDERS: PCP Student in an Organized Health Care Education/Training Program; Visit Provider Ophthalmology
PROC: (CPT 66984; principal; 2022-05-30 10:30)
DX: H25.11 Age-related nuclear cataract, right eye (principal); Z98.42 Cataract extraction status, left eye
CPT/HCPCS: 66984; V2632

== ENCOUNTER 2024-08-30 00:23 | Outpatient (CLI) | payer MEDICARE, SELFPAY ==
--- NOTE | 2024-08-30 06:31 | DI.MAMMO_ITS ---
Exam(s) MAMMO SCREENING EXAM: MAMMO SCREENING CLINICAL HISTORY: screening,z12.39 TECHNIQUE: Mammograms were interpreted according to the usual protocol including computer analysis with CAD system, tomosynthesis and C-view imaging. COMPARISON: 2014 and 2020 FINDINGS: The breasts are composed of scattered fibroglandular densities, Breast Density category B. No suspicious masses or suspicious microcalcifications are seen. No skin thickening or abnormal axillary lymph nodes are seen. There has been no significant change from prior exams. IMPRESSION: BI-RADS Category 1, Negative mammogram Yearly screening mammography is recommended. Breast Density - Category B - There are scattered areas of fibroglandular density. Breast density Category C or D implies that the patient has dense breast tissue. Dense breast tissue can make it harder to find cancer on a mammogram. Dense breast tissue is also associated with an increased risk of breast cancer. This information about the result of the mammogram report was provided to the patient to raise their awareness. Use this report when you speak with the patient about their risks for breast cancer, which includes their family history. At that time, you may recommend additional screening tests (Ultrasound or MRI) as these tests may add significant information. A negative radiographic report should not delay biopsy if a dominant or clinically suspicious mass is present. Up to ten percent of cancers are not identified on mammography. A negative report may reinforce clinical impression. Adenosis and dense breasts may obscure an underlying neoplasm. False positive reports average 6 to 10%. Patient will receive a letter notifying them of these results.
== END 2024-08-30 00:43 ==
LOC: DI 00:23
PROVIDERS: PCP Nurse Practitioner Family; Visit Provider Nurse Practitioner Family
DX: Z12.31 Encounter for screening mammogram for malignant neoplasm of breast (principal); R92.323 Mammographic fibroglandular density, bilateral breasts
CPT/HCPCS: 77063; 77067